=== PATIENT | male | born 1965 | race American Indian/Alaskan Native ===

== ENCOUNTER 2018-11-06 07:08 | Day surgery (SDC) | payer OTHER ==
[2018-11-05 13:37] VITALS: BMI 24.7
[2018-11-06 07:27] VITALS: O2SAT 100
--- NOTE | 2018-11-06 09:18 | CP.SDSHP ---
Same Day Surgery H & P - History Proposed Procedure: EGD Pre-Op Diagnosis: SEE NOTES - Previous Medical/Surgical History Endocrine/Metabolic: Diabetes Pain: 4.Moderate Pain - Allergies Allergies: Allergies No Known Allergies Allergy (Verified 11/05/18 13:36) - Physical Exam General Appearance: N Vital Signs: Vital Signs 11/06/18 07:24 Temperature 97 F L Pulse Rate 76 Respiratory 20 Rate Blood Pressure 158/91 H O2 Sat by Pulse 100 Oximetry Mental Status: Alert & Oriented x3 Neuro: WNL Heart: WNL Lungs: WNL GI: Other - {Optional Preform as Required} Breast: WNL Abdomen: Other Rectal: Other Integument: WNL : WNL Ortho: WNL ENT: WNL - Impression Pt. Evaluated Today:Candidate for Anesthesia & Procedure: Yes - Date & Time Time: 09:17 Short Stay Discharge - Short Stay Discharge Admitting Diagnosis/Reason for Visit: DYSPHAGIA Disposition: HOME/ ROUTINE
[2018-11-06] MEDS ORDERED: Midazolam 2 MG/2 ML VIAL ONE (09:20)
[2018-11-06] MEDS ORDERED: Propofol 10 mg/ml Inj (20 ML) ONE (09:20)
[2018-11-06] MEDS ORDERED: Belladonna-Phenobarbital PO ONE (10:00)
[2018-11-06] MEDS ORDERED: Sucralfate 1 gm/10 ml Oral Susp UD PO ONE (10:00)
[2018-11-06 12:58] VITALS: TEMP 97.7
[2018-11-06 13:02] VITALS: RESP 19
[2018-11-06 13:11] VITALS: BP 126/87; PULSE 76
== END 2018-11-06 10:55 | disposition home or self-care (01) ==
LOC: C.ENDO 07:08
PROVIDERS: ATTEND Specialist
DX: K21.0 Gastro-esophageal reflux disease with esophagitis (principal); K44.9 Diaphragmatic hernia without obstruction or gangrene; K29.50 Unspecified chronic gastritis without bleeding; R13.14 Dysphagia, pharyngoesophageal phase; E11.9 Type 2 diabetes mellitus without complications; I10 Essential (primary) hypertension; E78.5 Hyperlipidemia, unspecified; J45.909 Unspecified asthma, uncomplicated; Z79.899 Other long term (current) drug therapy; Z79.4 Long term (current) use of insulin
CPT/HCPCS: 43239; 82948; 88305; J2001; J2250; J2704

== ENCOUNTER 2018-11-11 07:38 | Day surgery (SDC) | payer OTHER ==
[2018-11-11 08:01] VITALS: BMI 25.0
[2018-11-11] MEDS ORDERED: Propofol 10 mg/ml Inj (20 ML) ONE ×2 (09:40→09:52)
--- NOTE | 2018-11-11 09:40 | CP.SDSHP ---
Same Day Surgery H & P - History Proposed Procedure: COLONSCOPY Pre-Op Diagnosis: SEE NOTES - Previous Medical/Surgical History Endocrine/Metabolic: Diabetes Pain: 4.Moderate Pain - Allergies Allergies: Allergies No Known Allergies Allergy (Verified 11/05/18 13:36) - Physical Exam General Appearance: N Vital Signs: Vital Signs 11/11/18 08:11 Temperature 99 F Pulse Rate 80 Respiratory 20 Rate Blood Pressure 134/76 O2 Sat by Pulse 100 Oximetry Mental Status: Alert & Oriented x3 Neuro: WNL Heart: WNL Lungs: WNL GI: Other - {Optional Preform as Required} Breast: WNL Abdomen: Other Rectal: Other Integument: WNL : WNL Ortho: WNL ENT: WNL - Impression Pt. Evaluated Today:Candidate for Anesthesia & Procedure: Yes - Date & Time Time: 09:39 Short Stay Discharge - Short Stay Discharge Admitting Diagnosis/Reason for Visit: BODY WEIGHT LOSS Disposition: HOME/ ROUTINE
[2018-11-11] MEDS ORDERED: Lidocaine Hydrochloride 5 ML INJ ONE (09:41)
[2018-11-11] MEDS ORDERED: Belladonna-Phenobarbital PO ONE (10:30)
[2018-11-11 10:39] VITALS: TEMP 98
[2018-11-11 10:40] VITALS: PULSE 88; O2SAT 100
[2018-11-11 10:47] VITALS: BP 123/88; RESP 20
== END 2018-11-11 10:28 | disposition home or self-care (01) ==
LOC: C.ENDO 07:38
PROVIDERS: ATTEND Specialist
DX: R63.4 Abnormal weight loss (principal); K57.30 Diverticulosis of large intestine without perforation or abscess without bleeding
CPT/HCPCS: 45380; 88305; J2704